=== PATIENT | female | born 2000 | race African-American/Black ===

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

== ENCOUNTER 2019-03-14 06:41 | Emergency (ER) | payer MEDICAID ==
[~2019-03-14] VITALS: Ht 162.6 cm; Wt 63.5 kg
[~2019-03-14 06:41] MED LIST changes: +CLINDAMYCIN HC300 MG ORAL; +NKM
[2019-03-14 07:00] VITALS: BP 113/64
--- NOTE | 2019-03-14 07:00 | NUR ---
ED Nurse Note: patient ambulated to ed c/o vomitting headache and chills x 0100. temp at triage 98.8. Pt aaox4, vss, no acute distress. Pt is cooperative and well groomed. Pt has no skin issues and is on monitoring manager. MD with patient.
--- NOTE | 2019-03-14 07:01 | NUR ---
ED Nurse Note: Blood and urine sent to lab.
--- NOTE | 2019-03-14 07:13 | Emergency Room Report ---
History of Present Illness General Chief Complaint: Vomiting Source: Patient Present Illness HPI 18-year-old female with no past medical history who presents with nausea, vomiting, and headache. Symptoms are acute onset at 1 AM today. Patient states she ate Popeyes yesterday for dinner. She reports she had 4-5 episodes of nonbloody nonbilious vomiting. Her headache is frontal in nature worse on the left compared to the right. She denies any diarrhea or constipation. Patient did not try medications at home for symptom control. Patient denies any prior abdominal surgeries. Patient's last menstrual period was February 24 lasting for 5 days. She has no prior pregnancies. She denies any urinary complaints at this time. She notes some mild associated epigastric abdominal pain, cramping in nature.. Allergies: Coded Allergies: No Known Allergies (Unverified , 05/23/17) Patient History Past Medical History: none Past Surgical History: none Last Menstrual Period: 03/08/19 Now: No Nursing Documentation-[facility] Past Medical History: No Stated History Review of Systems Constitutional: Denies: chills, fever Respiratory: Denies: cough, shortness of breath Cardiovascular: Denies: chest pain, palpitations Gastrointestinal: Reports: abdominal pain, nausea, vomiting; Denies: diarrhea Genitourinary: Denies: hematuria, pain Musculoskeletal: Denies: joint swelling Skin: Denies: rash, lesions Neurological: Reports: headache; Denies: dizziness Physical Exam Vital Signs Date Time Temp Pulse Resp B/P (MAP) Pulse Ox O2 Delivery O2 Flow Rate FiO2 03/14/19 06:43 98.2 76 22 130/78 (95) 97 Room Air Sp02 EP Interpretation: reviewed General Appearance: well appearing, no apparent distress, non-toxic Head: normocephalic, atraumatic Eyes: bilateral eye normal inspection, bilateral eye PERRL ENT: hearing grossly normal, EOM grossly intact, normal pharynx, uvula midline , moist mucus membranes Neck: supple Respiratory: lungs clear, normal breath sounds, no respiratory distress, speaking full sentences Cardiovascular #1: regular rate, rhythm, no edema, normal capillary refill Cardiovascular #2: 2+ radial (R), 2+ radial (L) Gastrointestinal: normal bowel sounds, non tender, soft, no mass, no organomegaly, no peritonitis, non-distended, no guarding, no rebound Rectal: deferred Musculoskeletal: moves extm spontaneously, no lower extremity edema Neurologic: grossly normal Psychiatric: mood/affect normal Skin: warm/dry, normal turgor Medical Decision Making ER Course 18-year-old female who presents with nausea, vomiting, headache since 1 AM last night. Patient did not try any medications for symptom control. Patient has no prior medical history or surgical history. Differential includes gastroenteritis, viral illness, bowel obstruction, appendicitis, UTI, pyelonephritis, dehydration, tension headache, intracranial hemorrhage or mass, subarachnoid hemorrhage Doubt bowel obstruction as patient has no prior surgeries and has normal bowel movements. Doubt appendicitis as patient is nontender to exam and afebrile. Doubt intracranial hemorrhage or mass as patient has no focal neurological deficits and history not stating any red flags concerning for subarachnoid hemorrhage. We will perform lab testing give antiemetics and IV hydration. Will reassess Laboratory Tests Test 03/14/19 06:50 03/14/19 06:59 Urine Color Pale yellow Urine Appearance Slightly cloudy Urine pH 8 (4.5-8.0) Urine Specific [place] 1.015 (1.005-1.035) Urine Protein 1+ (NEGATIVE) H Urine Glucose (UA) Negative (NEGATIVE) Urine Ketones 1+ (NEGATIVE) H Urine Blood Negative (NEGATIVE) Urine Nitrite Negative (NEGATIVE) Urine Bilirubin Negative (NEGATIVE) Urine Urobilinogen Normal MG/DL (0.0-1.0) Urine Leukocyte Esterase 1+ (NEGATIVE) H Urine RBC 0-2 /HPF (0 - 2) Urine WBC 5-10 /HPF (0 - 2) H Urine Squamous Epithelial Cells Many /LPF (NONE/OCC) H Urine Bacteria Few /HPF (NONE) Urine HCG, Qualitative Negative (NEGATIVE) White Blood Count 12.4 K/UL (4.8-10.8) H Red Blood Count 5.27 M/UL (4.20-5.40) Hemoglobin 11.6 G/DL (12.0-16.0) L Hematocrit 37.9 % (37.0-47.0) Mean Corpuscular Volume 72 FL (80-99) L Mean Corpuscular Hemoglobin 21.9 PG (27.0-31.0) L Mean Corpuscular Hemoglobin Concent 30.5 G/DL (32.0-36.0) L Red Cell Distribution Width 13.6 % (11.6-14.8) Platelet Count 310 K/UL (150-450) Mean Platelet Volume 6.3 FL (6.5-10.1) L Neutrophils (%) (Auto) 84.9 % (45.0-75.0) H Lymphocytes (%) (Auto) 11.4 % (20.0-45.0) L Monocytes (%) (Auto) 2.9 % (1.0-10.0) Eosinophils (%) (Auto) 0.3 % (0.0-3.0) Basophils (%) (Auto) 0.4 % (0.0-2.0) Sodium Level 139 MMOL/L (136-145) Potassium Level 3.6 MMOL/L (3.5-5.1) Chloride Level 102 MMOL/L (98-107) Carbon Dioxide Level 33 MMOL/L (21-32) H Anion Gap 5 mmol/L (5-15) Blood Urea Nitrogen 11 mg/dL (7-18) Creatinine 0.8 MG/DL (0.55-1.30) Estimate Glomerular Filtration Rate > 60 mL/min (>60) Glucose Level 124 MG/DL (74-106) H Calcium Level 8.9 MG/DL (8.5-10.1) Total Bilirubin 0.3 MG/DL (0.2-1.0) Aspartate Amino Transferase (AST) 25 U/L (15-37) Alanine Aminotransferase (ALT) 32 U/L (12-78) Alkaline Phosphatase 73 U/L (46-116) Total Protein 7.8 G/DL (6.4-8.2) Albumin 3.9 G/DL (3.4-5.0) Globulin 3.9 g/dL Albumin/Globulin Ratio 1.0 (1.0-2.7) Lipase 112 U/L (73-393) Lab Results Impression Mild elevated WBC normal kidney function, liver function, pancreatic function, urine analysis positive for ketones, leukocyte esterase however many epithelial cells likely contaminated sample. Negative for nitrites Reevaluation Time: 09:19 Last Vital Signs Date Time Temp Pulse Resp B/P (MAP) Pulse Ox O2 Delivery O2 Flow Rate FiO2 03/14/19 08:56 98.0 62 16 122/89 99 Room Air Status: improved Reevaluation Impression Patient reported feeling better, no more nausea or vomiting. Patient tolerated p.o. liquids at bedside. Patient's laboratory results reviewed. Noted to be within normal limits. Patient given a note for school for 3 days duration to be off. Patient recommended plenty of hydration and fluids. Given warning signs and return precautions. Patient understands all instructions. Mother at bedside also understands instructions Disposition: HOME, SELF-CARE Condition: Stable Scripts Ondansetron* (ZOFRAN*) 4 Mg Tablet 4 MG ORAL Q6H PRN for Nausea & Vomiting for 7 Days, #10 TAB Prov: Montrell Ramsey M.D. 03/14/19 Referrals: [facility] Departure Forms: Return to School Return to School On: Mar 17, 2019 Return to Full Activity: Mar 14, 2019 Patient Instructions: Nausea and Vomiting, Adult Additional Instructions: Patient recommended to follow-up with primary care doctor or clinic in 2 to 3 days. Return to emergency room if any worsening abdominal pain, increased nausea or vomiting, unable to tolerate any liquids or food, and or any new symptoms. Montrell Ramsey M.D. Mar 14, 2019 07:13
[2019-03-14 07:34] LABS: BASOPHILS % (AUTO) 0.4 % (0.0-2.0); EOSINOPHILS % (AUTO) 0.3 % (0.0-3.0); HEMATOCRIT 37.9 % (37.0-47.0); HEMOGLOBIN 11.6 G/DL (12.0-16.0); LYMPHOCYTES % (AUTO) 11.4 % (20.0-45.0); MEAN CORPUSCULAR VOLUME 72 FL (80-99); MONOCYTES % (AUTO) 2.9 % (1.0-10.0); NEUTROPHILS % (AUTO) 84.9 % (45.0-75.0); PLATELET COUNT 310 K/UL (150-450); RED BLOOD COUNT 5.27 M/UL (4.20-5.40); RED CELL DISTRIBUTION WIDTH 13.6 % (11.6-14.8); WHITE BLOOD COUNT 12.4 K/UL (4.8-10.8)
[2019-03-14 07:46] LABS: ANION GAP 5 mmol/L (5-15); BLOOD UREA NITROGEN 11 mg/dL (7-18); CALCIUM 8.9 MG/DL (8.5-10.1); CARBON DIOXIDE 33 MMOL/L (21-32); CHLORIDE 102 MMOL/L (98-107); CREATININE 0.8 MG/DL (0.55-1.30); POTASSIUM 3.6 MMOL/L (3.5-5.1); SODIUM 139 MMOL/L (136-145)
[2019-03-14 07:50] LABS: ALANINE AMINOTRANSFERASE 32 U/L (12-78); ALBUMIN 3.9 G/DL (3.4-5.0); ALKALINE PHOSPHATASE 73 U/L (46-116); ASPARTATE AMINO TRANSFERASE 25 U/L (15-37); BILIRUBIN,TOTAL 0.3 MG/DL (0.2-1.0)
[2019-03-14 08:43] LABS: APPEARANCE,URINE SLIGHTLY CLOUDY; BILIRUBIN, URINE NEGATIVE (NEGATIVE); COLOR,URINE PALE YELLOW; GLUCOSE, URINE (UA) NEGATIVE (NEGATIVE); KETONES,URINE 1+ (NEGATIVE); LEUKOCYTE ESTERASE ,URINE 1+ (NEGATIVE); NITRITE,URINE NEGATIVE (NEGATIVE); PH,URINE 8 (4.5-8.0); PROTEIN,URINE 1+ (NEGATIVE); UROBILINOGEN,URINE NORMAL MG/DL (0.0-1.0)
[2019-03-14 08:56] VITALS: BP 122/89
[2019-03-14] MEDS ORDERED: ZOFRAN4 M3 ORAL (09:11)
[2019-03-14 09:20] VITALS: BP 135/79
--- NOTE | 2019-03-14 09:20 | NUR ---
ER DISCHARGE NOTE: Patient is cleared to be discharged per ERMD, pt is aox4, on room air, with stable vital signs. pt was given dc and prescription instructions, pt was able to verbalize understanding, pt id band and iv site removed without complications. pt is able to ambulate with steady gait. pt took all belongings and left with her mom.
== END 2019-03-14 10:20 | disposition home or self-care (01) ==
LOC: EMR 07:06
DX: R11.2 Nausea with vomiting, unspecified (principal); R51 Headache
CPT/HCPCS: 36415; 80053; 81003; 81025; 83690; 85025; 96361; 96374; J2405; Z7502; 99284